=== PATIENT | male | born 1960 | race American Indian/Alaskan Native ===

== ENCOUNTER 2018-01-29 22:26 | Emergency (ER) | payer BC, OTHER ==
[2018-01-29] MEDS ORDERED: Clindamycin HCl 150 MG Cap PO ONE (23:11)
--- NOTE | 2018-01-29 23:16 | EDM.PDOC ---
ED HPI GENERAL MEDICAL PROBLEM - General Chief Complaint: General Stated Complaint: [id number] WORRIED ABOUT BLOOD POISONING? Time Seen by Provider: 01/29/18 23:12 Source of Information: Reports: Patient History Limitations: Reports: No Limitations - History of Present Illness INITIAL COMMENTS - FREE TEXT/NARRATIVE: had some scratches on right hand dorsum Saturday and now lots worse. Right Hand Pain Score (Numeric/FACES): 5 - Related Data Allergies Allergy/AdvReac Type Severity Reaction Status Date / Time Penicillins Allergy Rash Verified 01/29/18 22:57 Home Meds: Home Meds Losartan [Cozaar] 30 mg PO DAILY 01/29/18 [History] atorvaSTATin [Lipitor] 1 tab PO BEDTIME 01/29/18 [History] diphenhydrAMINE HCl [Benadryl Allergy] 50 mg PO BEDTIME 01/29/18 [History] ED ROS GENERAL - Review of Systems Review Of Systems: ROS reveals no pertinent complaints other than HPI. ED EXAM, GENERAL - Physical Exam Exam: See Below Exam Limited By: No Limitations General Appearance: Alert, WD/WN, No Apparent Distress Ears: Hearing Grossly Normal Throat/Mouth: Normal Voice, No Airway Compromise Head: Atraumatic, Normocephalic Neck: Non-Tender, Full Range of Motion Respiratory/Chest: No Respiratory Distress Cardiovascular: Regular Rate, Rhythm GI/Abdominal: Soft, Non-Tender Extremities: Other (right hand dorsum mild swelling erythema no lymphangitis, NV wnl) Neurological: Alert, Oriented, Normal Cognition, Normal Gait, No Motor/Sensory Deficits Psychiatric: Normal Affect, Normal Mood Skin Exam: Warm, Dry, Normal Color Lymphatic: No Adenopathy Course - Vital Signs Last Recorded V/S: Last Vital Signs Temp 37.6 C 01/29/18 22:59 Pulse 59 L 01/29/18 22:59 Resp 20 01/29/18 22:59 BP 194/91 H 01/29/18 22:59 Pulse Ox 97 01/29/18 22:59 - Orders/Labs/Meds Orders: Active Orders 24 hr Category Date Time Status Clindamycin HCl [Cleocin] Med 01/29/18 23:11 Once 300 mg PO ONETIME ONE Departure - Departure Time of Disposition: 23:15 Disposition: Home, Self-Care 01 Condition: Good Clinical Impression: Cellulitis of hand, right - Discharge Information Instructions: Cellulitis, Adult, [id number] Referrals: Olimpia Santacruz MD [Primary Care Provider] - Additional Instructions: 1) keep wounds clean dry 2) recheck if looks worse rx given; clindamycin 150mg qid x 40 - My Orders Last 24 Hours: My Active Orders 01/29/18 23:11 Clindamycin HCl [Cleocin] 300 mg PO ONETIME ONE - Assessment/Plan Last 24 Hours: My Active Orders 01/29/18 23:11 Clindamycin HCl [Cleocin] 300 mg PO ONETIME ONE
== END 2018-01-29 23:30 | disposition home or self-care (01) ==
LOC: DL.ED 22:26
DX: L03.113 Cellulitis of right upper limb (principal); Z88.0 Allergy status to penicillin; Z79.899 Other long term (current) drug therapy
CPT/HCPCS: 99282; A9270

== ENCOUNTER 2022-05-08 03:10 | Emergency (ER) | payer MEDICAID, OTHER ==
[2022-05-08] MEDS ORDERED: hydrALAZINE 20 MG/ML SDV IVPUSH ONE (04:17)
[2022-05-08 04:29] LABS: ANION GAP 13.6 mEq/L (7-13); CHLORIDE,CL 102 mmol/L (98-107); SODIUM,NA 141 mmol/L (136-145)
[2022-05-08 04:36] LABS: ESTIMATED GFR 88 mL/min (>=60)
== END 2022-05-08 05:02 | disposition home or self-care (01) ==
LOC: DL.ED 03:10
DX: F41.9 Anxiety disorder, unspecified (principal); I10 Essential (primary) hypertension; Z88.0 Allergy status to penicillin; Z79.899 Other long term (current) drug therapy
CPT/HCPCS: 36415; 80053; 80307; 84484; 85025; 96374; 99282; 99283-25; J0360